=== PATIENT | female | born 1980 | race Caucasian/White ===

== ENCOUNTER → 2021-11-28 | Outpatient (CLI) | payer OTHER ==
[~2021-11-28] MED LIST: AMLODIPINE BESY10 MG PO; DULCOLAX STOOL100 M1 PO; ZYRTEC10 M5 PO
== END ==
LOC: LAB 11:52
PROVIDERS: ATTEND Student in an Organized Health Care Education/Training Program
DX: Z20.822 Contact with and (suspected) exposure to COVID-19 (principal)

== ENCOUNTER → 2021-11-29 | Day surgery (SDC) | payer OTHER ==
[~2021-11-29] VITALS: Ht 157.5 cm; Wt 49.4 kg
[2021-11-29 07:05] VITALS: BP 140/87
--- NOTE | 2021-11-29 07:53 | EKG ---
[address] [address] ELECTROCARDIOGRAM REPORT Name: LEROY WHELAN Room #: REG [facility]#: [id number] Admission: 11/29/21 Attend Phys: Hermilo Arellano MD Discharge: Date of : 78 Report #: [id number] 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
[2021-11-29 11:37] VITALS: BP 140/87
--- NOTE | 2021-12-05 14:35 | O ---
[address] [address] OPERATIVE REPORT Name: LEROY WHELAN Room #: REG [facility].#: [id number] Admission: 11/29/21 Attend Phys: Hermilo Arellano MD Discharge: Date of : 78 Report #: [id number] THIS REPORT FOR: cc: Gissel Maldonado MD, Pandurang P. MD McCabe,Hermilo Fallon MD ~ DATE OF SERVICE: 11/29/2021 SERVICE: Orthopedics. FACILITY: [facility]. SURGEON: Hermilo Arellano MD CANVAS BASTER JUMPBASTING: Estee Grimes NP INDICATIONS FOR CANVAS BASTER JUMPBASTING: Extremity positioning, suture management, arthroscope management, assistance with repair. PREOPERATIVE DIAGNOSES: 1. Left hip pain. 2. Left hip femoral acetabular impingement. 3. Left hip acetabular labral tear. 4. Left hip mechanical clicking. POSTOPERATIVE DIAGNOSES: 1. Left hip pain. 2. Left hip femoral acetabular impingement. 3. Left hip acetabular labral tear. 4. Left hip mechanical clicking. 5. Left hip acetabular chondromalacia. PROCEDURES: 1. Left hip arthroscopic labral repair. 2. Left hip arthroscopic Cam osteochondroplasty. 3. Left hip arthroscopic subspine decompression. 4. Left hip arthroscopic acetabular chondroplasty. COMPLICATIONS: None. DRAINS: None. SPECIMENS: None. ANESTHESIA: General with regional. [address] [address] OPERATIVE REPORT Name: LEROY WHELAN Room #: REG [facility]#: [id number] Admission: 11/29/21 Attend Phys: Hermilo Arellano MD Discharge: Date of : 78 Report #: [id number] FINDINGS: 1. Castalia CinchLock suture anchor x5 for labral repair. 2. Diffuse softening of the anterior acetabular cartilage over an arc measuring 10 mm radially from peripheral to central and approximately 2 cm medial to lateral. There was a focal high-grade lesion, likely full thickness, but narrow incised at the anterolateral position with some softening of the cartilage, but there were no detached flap tears. Chondroplasty performed over the entire chondromalacia. 3. 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 4. Capsular repair with #2 Vicryl x6. 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 She had partial relief with intra-articular injection, but unfortunately her symptoms recurred. 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 Her physical examination was consistent with symptomatic femoral acetabular impingement. She had mechanical give way symptoms, pain with sitting and walking. She had a positive impingement sign on physical exam. X-rays were consistent with femoral acetabular impingement with a Tonnis grade of 0. 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 Prominent anterior inferior iliac spine causing extraarticular subspine impingement and a labral tear on the MRI. Risks, benefits, alternatives and indications for surgery discussed with her in detail. Risks include but not limited to pain, bleeding, infection, injuring nerves or blood vessels, persistent pain despite surgical intervention, failure of any repairs, progression of preexisting chondral injury, stiffness, need for further surgery as well as complications related to anesthesia. Despite the risks, she wished to proceed. PROCEDURE IN DETAIL: After left lower extremity was correctly identified in the preoperative holding her operative extremity, the patient underwent regional nerve blocks and taken to the operating room where general anesthesia was induced without complication. She was padded appropriately. Prophylactic antibiotics were administered at appropriate time. C-arm was used to identify the extent of the Cam deformity mapping out the femoral head and neck junction and then the hip was prepped and draped in sterile fashion. Timeout procedure was performed. Traction was applied. Standard anterolateral viewing portal established followed by anteromedial working portal. Diagnostic arthroscopy revealed the above findings. There was synovitis and erythema. The capsule, which will be the indication for continuous passive motion machine usage postoperatively in order to reduce the risk of scarring and adhesions that these can be reasons for reoperation in this patient population. Transverse capsulotomy was performed. Capsule was reflected off the dorsal side of the labrum. She had a large labrum [address] [address] OPERATIVE REPORT Name: LEROY WHELAN Room #: REG [facility]..#: [id number] Admission: 11/29/21 Attend Phys: Hermilo Arellano MD Discharge: Date of : 78 Report #: [id number] that was quite unstable and she had a full-thickness labral tear anteriorly. There was fraying at the chondral labral junction. The subspine region was exposed by dissecting the capsule with the cautery and the shaver in a deliberate fashion while preserving all capsular tissue as able and this additional acetabular side of work was performed to expose the base of the anterior inferior iliac spine and then the aris was used to perform a subspine decompression in standard fashion. At this point, the aris was then used to abrade the acetabular rim to create a fresh surface for labral repair and we proceeded with the labral repair. With the scope laterally, the first two anchors were placed through the anteromedial portal, which provided anatomic reduction of the labrum against the rim. This was a large labral tear with a large arc of pathology of the soft tissues. I then moved the scope anteriorly, medial working portal laterally and placed a third anchor. This achieved good purchase, but the labrum was quite unstable as a portion of the hip, so I placed a fourth anchor. This one was between the second and third anchors and this significantly improved the more anterior portion of the labrum. There was still some instability at the chondral labral junction and of the labrum more peripherally until a fifth anchor was placed laterally and this provided significant improved stability of the labrum and the chondral labral junction. The shaver was then used to perform a thorough chondroplasty, noting the above findings. There were no areas of exposed bone. After this was completed, traction was let down and hip was flexed up. Attention turned towards the peripheral compartment. Transverse capsulotomy was extended down the neck in a T fashion allowing access to the entire Cam deformity. The aris was used to perform a Cam osteochondroplasty in standard fashion based on preoperative templating. I removed the instruments, brought C-arm in and assessed the resection, identified some additional bone that needed to be resected, placed the instruments back in the hip, completed the Cam osteoplasty and then removed the instruments once more, brought C-arm in and assessed the resection. I was happy with the appearance of the Cam osteoplasty at this point, placed instruments back in the hip, lavaged the bony debris out of the hip and then closed the T-shaped capsulotomy with a total of six #2 Vicryl sutures. Instruments were removed. Portal sites were closed. Sterile dressing was applied. The patient was awakened from anesthesia and taken to recovery room in stable condition. No complications. All counts were reported as correct. <ELECTRONICALLY SIGNED> By: Hermilo Arellano MD 12/05/21 1435 [id number] 1940 Hermilo Arellano MD /nt
== END | disposition home or self-care (01) ==
LOC: OR
PROVIDERS: ATTEND Orthopaedic Surgery Sports Medicine
DX: M25.552 Pain in left hip (principal); M25.852 Other specified joint disorders, left hip; S73.192A Other sprain of left hip, initial encounter; M94.252 Chondromalacia, left hip; R29.4 Clicking hip; X58.XXXA Exposure to other specified factors, initial encounter; Y93.89 Activity, other specified; Y92.89 Other specified places as the place of occurrence of the external cause; Y99.8 Other external cause status
CPT/HCPCS: 50010; 50101; 50386; 51320; 51538; 52001; 52282; 52304; 56524; 56527; 57092; 57103; 58273; 58274; 58557; 58558; 58559; 58560; 58561; 58563; 58564; 58608; 59133; 62110; 62900; 64041; 70005